=== PATIENT | female | born 1975 | race Caucasian/White ===

== ENCOUNTER 2017-03-31 19:00 | Emergency (ER) | payer OTHER ==
[~2017-03-31] VITALS: Ht 149.9 cm; Wt 55.7 kg
[~2017-03-31 19:00] MED LIST: PERCOCET 5/31 TABLET PO; ZOFRAN ODT4 MG PO
[2017-03-31 19:29] LABS: ADD MIUA? YES; BILIRUBIN NEGATIVE; BLOOD NEGATIVE; COLOR YELLOW ((YELLOW)); GLUCOSE (STRIP) NEGATIVE; KETONES NEGATIVE; LEUKOCYTES NEGATIVE; NITRITE NEGATIVE; PROTEIN (STRIP) NEGATIVE; SPECIFIC GRAVITY 1.027 (1.000-1.030); UROBILINOGEN 0.2 MG/DL (0.2-1.0)
[2017-03-31 19:33] LABS: HEMATOCRIT 41.3 % (36.0-46.0); MCH 30.9 PG (29.0-34.0); MCHC 34.1 G/DL (30.0-36.0); MCV 90.4 FL (83-99); MEAN PLAT.VOLUME 9.5 uM^3 (9.5-12.4); PLATELET COUNT 241 K/uL (156-360); RBC DIS.WIDTH-CV 11.9 % (11.8-14.6); RBC DIS.WIDTH-SD 38.5 % (39-53); RED BLOOD COUNT 4.57 M/uL (3.80-5.20); WHITE BLOOD COUNT 6.2 K/uL (4.1-10.2)
[2017-03-31 19:41] LABS: BACTERIA NONE SEEN /HPF; EPITHELIAL CELLS 2+ /HPF; MUCUS TRACE /LPF; RED BLOOD CELLS 0-5 /HPF (0-5); UCUL ADDED? NO; WHITE BLOOD CELLS 0-5 /HPF (0-5)
[2017-03-31 19:45] LABS: CHLORIDE 104 mEq/L (99-109); POTASSIUM 3.6 mEq/L (3.7-5.4); SODIUM 138 mEq/L (136-147)
[2017-03-31 19:47] LABS: GLUCOSE 98 mg/dL (70-99)
[2017-03-31 19:48] LABS: ANION GAP 10 MEQ/L (2-14)
[2017-03-31 19:49] LABS: TOTAL BILIRUBIN 0.4 mg/dL (0.0-1.0)
[2017-03-31 19:51] LABS: ALKALINE PHOSPHATASE 74 IU/L (3-129); GFR ESTIMATE (CALCULATED) > 59 mL/min/
[2017-03-31 19:52] LABS: UREA NITROGEN (BUN) 19 mg/dL (9-23)
[2017-03-31 19:54] LABS: LIPASE 15 U/L (1.0-51.0)
[2017-03-31 20:02] LABS: QUANTITATIVE HCG < 4.0 MIU/ML
[2017-03-31] MEDS ORDERED: AMBIEN CR12.5 MG PO (20:36)
[2017-03-31] MEDS ORDERED: XANAX0.25 MG PO (20:37)
[2017-03-31] MEDS ORDERED: RITALIN20 MG PO (20:37)
[2017-03-31] MEDS ORDERED: BENTYL20 MG PO (22:59)
[2017-03-31] MEDS ORDERED: REGLAN10 MG PO (22:59)
[2017-04-01 00:04] VITALS: BP 127/80
== END 2017-04-01 00:54 | disposition home or self-care (01) ==
LOC: EME 19:00
DX: R10.11 Right upper quadrant pain (principal); R11.2 Nausea with vomiting, unspecified; R19.7 Diarrhea, unspecified
CPT/HCPCS: 74177; 76705; 80053; 81003; 83690; 84702; 85027; 99281; 99285; J1885; J2405; J2550; J7030

== ENCOUNTER 2017-11-04 23:12 | Emergency (ER) | payer OTHER ==
[~2017-11-04] VITALS: Ht 149.9 cm; Wt 52.4 kg
[~2017-11-04 23:12] MED LIST changes: +AMBIEN CR12.5 MG PO; +BENTYL20 MG PO; +REGLAN10 MG PO; +RITALIN20 MG PO; +XANAX0.25 MG PO
[2017-11-05 00:03] LABS: HEMATOCRIT 37.1 % (36.0-46.0); HEMOGLOBIN 12.7 G/DL (11.9-15.5); MCH 31.4 PG (29.0-34.0); MCHC 34.2 G/DL (30.0-36.0); MCV 91.8 FL (83-99); PLATELET COUNT 239 K/uL (156-360); RBC DIS.WIDTH-SD 40.5 % (39-53); RED BLOOD COUNT 4.04 M/uL (3.80-5.20); WHITE BLOOD COUNT 6.2 K/uL (4.1-10.2)
[2017-11-05 00:13] LABS: ALBUMIN 3.9 g/dL (3.2-4.8); CHLORIDE 109 mEq/L (99-109); POTASSIUM 3.6 mEq/L (3.7-5.4); SODIUM 142 mEq/L (136-147)
[2017-11-05 00:15] LABS: GLUCOSE 90 mg/dL (70-99); TOTAL PROTEIN 6.3 g/dL (6.4-8.3)
[2017-11-05 00:17] LABS: TOTAL BILIRUBIN 0.2 mg/dL (0.0-1.0)
[2017-11-05 00:19] LABS: ALKALINE PHOSPHATASE 70 IU/L (3-129); CREATININE 0.7 mg/dL (0.6-1.3); GFR ESTIMATE (CALCULATED) > 59 mL/min/
[2017-11-05 00:20] LABS: UREA NITROGEN (BUN) 17 mg/dL (9-23)
[2017-11-05 00:21] LABS: AST (GOT) 22 IU/L (2-34)
[2017-11-05 00:22] LABS: ALT (GPT) 16 IU/L (3-49)
[2017-11-05 00:28] LABS: QUANTITATIVE HCG < 4.0 MIU/ML
[2017-11-05 02:16] LABS: APPEARANCE CLOUDY ((CLEAR)); BILIRUBIN NEGATIVE; BLOOD SMALL; COLOR YELLOW ((YELLOW)); GLUCOSE (STRIP) NEGATIVE; KETONES NEGATIVE; LEUKOCYTES SMALL; NITRITE NEGATIVE; PROTEIN (STRIP) NEGATIVE; SPECIFIC GRAVITY 1.024 (1.000-1.030); UROBILINOGEN 0.2 MG/DL (0.2-1.0)
[2017-11-05 02:40] LABS: BACTERIA RARE /HPF; EPITHELIAL CELLS 4+ /HPF; MUCUS TRACE /LPF; RED BLOOD CELLS 0-5 /HPF (0-5); UCUL ADDED? YES
[2017-11-05] MEDS ORDERED: MACROBID100 MG PO (02:50)
[2017-11-05 03:11] VITALS: BP 129/93
== END 2017-11-05 03:21 | disposition home or self-care (01) ==
LOC: EME 23:12
PROVIDERS: Physician Assistant
DX: S09.90XA Unspecified injury of head, initial encounter (principal); V00.311A Fall from snowboard, initial encounter; Y93.23 Activity, snow (alpine) (downhill) skiing, snowboarding, sledding, tobogganing and snow tubing; N39.0 Urinary tract infection, site not specified; F90.9 Attention-deficit hyperactivity disorder, unspecified type; F41.9 Anxiety disorder, unspecified; Z88.0 Allergy status to penicillin
CPT/HCPCS: 70450; 80053; 81003; 84702; 85027; 87086; 99281; 99284

== ENCOUNTER 2017-11-30 11:54 | Emergency (ER) | payer OTHER ==
[~2017-11-30] VITALS: Ht 149.9 cm; Wt 52.7 kg
[~2017-11-30 11:54] MED LIST changes: +MACROBID100 MG PO
[2017-11-30] MEDS ORDERED: NAPROXEN500 MG PO (14:36)
[2017-11-30] MEDS ORDERED: FLEXERIL10 MG PO (14:36)
[2017-11-30 14:46] VITALS: BP 131/82
== END 2017-11-30 14:46 | disposition home or self-care (01) ==
LOC: EME 11:54
DX: S09.90XA Unspecified injury of head, initial encounter (principal); M62.838 Other muscle spasm; W17.89XA Other fall from one level to another, initial encounter; Y93.89 Activity, other specified; F90.9 Attention-deficit hyperactivity disorder, unspecified type; F41.9 Anxiety disorder, unspecified; F31.9 Bipolar disorder, unspecified; Z88.0 Allergy status to penicillin; Z88.6 Allergy status to analgesic agent; Z88.1 Allergy status to other antibiotic agents
CPT/HCPCS: 70450; 72125; 99281; 99283